=== PATIENT | male | born 2000 | race African-American/Black ===

== ENCOUNTER 2022-11-01 22:17 | Emergency (ER) | payer OTHER ==
[2022-11-01] MEDS ORDERED: FLUORESCEIN SODIUM 1 MG/WRAP ONE (23:32)
[2022-11-01] MEDS ORDERED: TETRACAINE HCL 0.5% 4ML OPTH ONE (23:32)
[2022-11-01] MEDS ORDERED: IBUPROFEN 200 MG TAB PO ONE (23:54)
--- NOTE | 2022-11-01 23:54 | EDPHYS ---
Physician Documentation [facility] Name: Bishnu Valdez Age: 22 yrs Sex: Male : 2000 Arrival Date: 11/01/2022 Time: 22:17 Bed 17 Private MD: ED Physician Marvin Nash HPI: 11/01 23:23 This 22 yrs old Black Male presents to ER via Ambulatory with complaints of Foreign snw Body In Eye. 23:23 The patient sustained fb, to the right eye. Onset: The symptoms/episode began/occurred snw suddenly, today. Duration: the symptoms are continuous. Associated signs and symptoms: Pertinent positives: None. Patient does not utilize any form of vision correction. Severity of symptoms: At their worst the symptoms were moderate. The patient has not experienced similar symptoms in the past. It is unknown whether or not the patient has recently seen a physician. Historical: - Allergies: 23:19 No Known Allergies; cm10 - Home Meds: 23:19 None [Active]; cm10 - PMHx: 23:19 None; cm10 - PSHx: 23:19 None; cm10 - Immunization history:: Adult Immunizations. - Social history:: Smoking status: Patient denies any tobacco usage or history of. ROS: 23:22 Constitutional: Negative for fever, chills, and weight loss, ENT: Negative for injury, snw pain, and discharge, Neck: Negative for injury, pain, and swelling, Cardiovascular: Negative for chest pain, palpitations, and edema, Respiratory: Negative for shortness of breath, cough, wheezing, and pleuritic chest pain, Abdomen/GI: Negative for abdominal pain, nausea, vomiting, diarrhea, and constipation, Back: Negative for injury and pain, : Negative for injury, bleeding, discharge, and swelling, MS/Extremity: Negative for injury and deformity, Skin: Negative for injury, rash, and discoloration, Neuro: Negative for headache, weakness, numbness, tingling, and seizure, Psych: Negative for depression, anxiety, suicide ideation, homicidal ideation, and hallucinations. 23:22 Eyes: Positive for foreign body sensation, of the iris of right eye. Exam: 23:21 Constitutional: This is a well developed, well nourished patient who is awake, alert, snw and in no acute distress. Head/Face: Normocephalic, atraumatic. Eyes: Pupils equal round and reactive to light, extra-ocular motions intact. Lids and lashes normal. Conjunctiva and sclera are non-icteric and not injected. Cornea within normal limits with metal fragment to right distal iris. ENT: Nares patent. No nasal discharge, no septal abnormalities noted. Tympanic membranes are normal and external auditory canals are clear. Oropharynx with no redness, swelling, or masses, exudates, or evidence of obstruction, uvula midline. Mucous membranes moist. 23:21 Neck: Trachea midline, no thyromegaly or masses palpated, and no cervical lymphadenopathy. Supple, full range of motion without nuchal rigidity, or vertebral point tenderness. No Meningismus. Chest/axilla: Normal chest wall appearance and motion. Nontender with no deformity. No lesions are appreciated. Cardiovascular: Regular rate and rhythm with a normal S1 and S2. No gallops, murmurs, or rubs. Normal PMI, no JVD. No pulse deficits. Respiratory: Lungs have equal breath sounds bilaterally, clear to auscultation and percussion. No rales, rhonchi or wheezes noted. No increased work of breathing, no retractions or nasal flaring. Skin: Warm, dry with normal turgor. Normal color with no rashes, no lesions, and no evidence of cellulitis. MS/ Extremity: Pulses equal, no cyanosis. Neurovascular intact. Full, normal range of motion. Neuro: Awake and alert, GCS 15, oriented to person, place, time, and situation. Cranial nerves II-XII grossly intact. Motor strength 5/5 in all extremities. Sensory grossly intact. Cerebellar exam normal. Normal gait. Psych: Awake, alert, with orientation to person, place and time. Behavior, mood, and affect are within normal limits. Vital Signs: 23:17 BP 138 / 97; Pulse 83; Resp 16; Temp 98.4; Pulse Ox 100% ; Weight 90.72 kg; Height 5 cm10 ft. 9 in. ; Pain 5/10; 23:17 Body Mass Index 29.53 (90.72 kg, 175.26 cm) cm10 23:17 Pain Scale: Adult cm10 Visual Acuity: 23:31 Left Eye Visual acuity 20/15, Pupil size 4 mm, Normal, React To Light, Reactive To jb4 Accomodation; Right Eye Visual acuity 20/15, Pupil size 4 mm, Normal, React To Light, Reactive To Accomodation; Both Eyes Visual acuity 20/13; Without Lenses; Procedures: 23:51 Eye Exam: needle used to remove metal from distal iris of right eye. snw MDM: 23:18 Patient medically screened. snw 23:23 Differential diagnosis: Corneal abrasion of right eye. Foreign body in right eye. Data snw reviewed: vital signs, nurses notes. Counseling: I had a detailed discussion with the patient and/or guardian regarding: the historical points, exam findings, and any diagnostic results supporting the discharge/admit diagnosis, the presence of at least one elevated blood pressure reading (>120/80) during this emergency department visit, the need for outpatient follow up, for definitive care, to return to the emergency department if symptoms worsen or persist or if there are any questions or concerns that arise at home. Response to treatment: the patient's symptoms have markedly improved after treatment. Special discussion: I have referred the patient to see his PCP for further evaluation of high blood pressure. Based on the history and exam findings, there is no indication for further emergent testing or inpatient evaluation. I discussed with the patient/guardian the need to see the opthamologist for further evaluation of the symptoms, I discussed with the patient/guardian the need to see the primary care provider for further evaluation of the symptoms. 11/01 23:21 Order name: Visual Acuity; Complete Time: 23:30 snw Administered Medications: 23:30 Drug: Tetracaine Ophthalmic Drops 0.5 % 1 drops {Note: administered by ER provider.} jb4 Route: Ophthalmic; Site: right eye; 23:55 Drug: ERYTHromycin Ophthalmic Ointment 1 application {Note: administered by ER jb4 provider.} Route: Ophthalmic; Site: right eye; 11/02 00:01 Drug: Boostrix Tdap IM 0.5 ml Route: IM; Site: right deltoid; jb4 00:01 Drug: Ibuprofen PO 600 mg Route: PO; jb4 Disposition Summary: 11/01/22 23:53 Discharge Ordered Location: Home snw Condition: Stable snw Diagnosis - Foreign body in cornea, right eye - removed snw Followup: snw - With: Emergency Department - When: As needed - Reason: Worsening of condition Followup: snw - With: Private Physician - When: 2 - 3 days - Reason: Recheck today's complaints, Continuance of care, Re-evaluation by your physician Discharge Instructions: - Discharge Summary Sheet snw - Corneal Abrasion snw - Eye Foreign Body snw - Hypertension, Adult snw - Form - Blood Pressure Record Sheet snw - How to Take Your Blood Pressure snw Forms: - Work release form snw - Medication Reconciliation Form snw - Thank You Letter snw - Antibiotic Education snw - Prescription Opioid Use snw - Patient Portal Instructions snw Prescriptions: - Polytrim 10,000 unit- 1 mg/mL Ophthalmic drops - instill 1 drop by OPHTHALMIC route 4 times per day for 7 days; 10 milliliter; snw Refills: 0, Product Selection Permitted - Tramadol 50 mg Oral Tablet - take 1 tablet by ORAL route every 8 hours as needed; 12 tablet; Refills: 0, snw Product Selection Permitted Signatures: Margie Gillis, BERNABE-C [employer]-Csnw [address] RN RN jb4 Mariposa Duran RN RN cm10
--- NOTE | 2022-11-01 23:54 | ER ---
Nurse's Notes [facility] Name: Bishnu Valdez Age: 22 yrs Sex: Male : 2000 Arrival Date: 11/01/2022 Time: 22:17 Bed 17 Private MD: Diagnosis: Foreign body in cornea, right eye-removed Presentation: 11/01 23:17 Chief complaint: Chief complaint: Patient states: piece of metal in right eye onset cm10 today. Last tetanus: Unknown. Coronavirus screen: Vaccine status: Patient reports receiving the 2nd dose of the covid vaccine. Ebola Screen: No symptoms or risks identified at this time. Initial Sepsis Screen: Does the patient meet any 2 criteria? RR > 20 per min. No. Patient's initial sepsis screen is negative. Does the patient have a suspected source of infection? No. Patient's initial sepsis screen is negative. Risk Assessment: Do you want to hurt yourself or someone else? Patient reports no desire to harm self or others. Onset of symptoms was November 01, 2022. 23:17 Method Of Arrival: Ambulatory cm10 23:17 Acuity: NIDA 4 cm10 Historical: - Allergies: 23:19 No Known Allergies; cm10 - Home Meds: 23:19 None [Active]; cm10 - PMHx: 23:19 None; cm10 - PSHx: 23:19 None; cm10 - Immunization history:: Adult Immunizations. - Social history:: Smoking status: Patient denies any tobacco usage or history of. Screenin:30 [facility] ED Fall Risk Assessment (Adult) History of falling in the last 3 months, jb4 including since admission No falls in past 3 months (0 pts) Confusion or Disorientation No (0 pts) Score/Fall Risk Level 0 - 2 = Low Risk Oriented to surroundings, Maintained a safe environment. Abuse screen: Denies threats or abuse. Nutritional screening: No deficits noted. Tuberculosis screening: No symptoms or risk factors identified. Assessment: 23:30 General: Appears in no apparent distress. comfortable, Behavior is calm, cooperative, jb4 appropriate for age. Pain: Complains of pain in right iris Pain does not radiate. Pain currently is 6 out of 10 on a pain scale. Quality of pain is described as burning. Neuro: Level of Consciousness is awake, alert, obeys commands, Oriented to person, place, time, situation. Cardiovascular: Respiratory: Airway is patent Respiratory effort is even, unlabored, Respiratory pattern is regular, symmetrical. GI: No signs and/or symptoms were reported involving the gastrointestinal system. : No signs and/or symptoms were reported regarding the genitourinary system. EENT: No signs and/or symptoms were reported regarding the EENT system. Derm: Skin is intact, Skin is pink, warm \T\ dry. Musculoskeletal: Circulation, motion, and sensation intact. Range of motion: intact in all extremities. 11/02 00:02 Reassessment: Patient appears in no apparent distress at this time. Patient and/or jb4 family updated on plan of care and expected duration. Pain level reassessed. Patient is alert, oriented x 3, equal unlabored respirations, skin warm/dry/pink. Vital Signs: 11/01 23:17 BP 138 / 97; Pulse 83; Resp 16; Temp 98.4; Pulse Ox 100% ; Weight 90.72 kg; Height 5 cm10 ft. 9 in. ; Pain 5/10; 23:17 Body Mass Index 29.53 (90.72 kg, 175.26 cm) cm10 23:17 Pain Scale: Adult cm10 Visual Acuity: 23:31 Left Eye Visual acuity 20/15, Pupil size 4 mm, Normal, React To Light, Reactive To jb4 Accomodation; Right Eye Visual acuity 20/15, Pupil size 4 mm, Normal, React To Light, Reactive To Accomodation; Both Eyes Visual acuity 20/13; Without Lenses; ED Course: 22:18 Patient arrived in ED. ag3 22:30 Margie Gillis FNP-C [facility]. snw 22:30 Marvin Nash MD is Attending Physician. snw 23:19 Triage completed. cm10 23:19 Arm band placed on Patient placed in an exam room, on a stretcher. cm10 23:[address], DAVID is Primary Nurse. jb4 23:30 Patient has correct armband on for positive identification. Bed in low position. Call jb4 light in reach. Side rails up X 1. 23:30 No provider procedures requiring assistance completed. Patient did not have IV access jb4 during this emergency room visit. 11/02 00:12 Provided Education on: instructed pt to buy proper safety eye wear for work.. jb4 Administered Medications: 11/01 23:30 Drug: Tetracaine Ophthalmic Drops 0.5 % 1 drops {Note: administered by ER provider.} jb4 Route: Ophthalmic; Site: right eye; 23:55 Drug: ERYTHromycin Ophthalmic Ointment 1 application {Note: administered by ER jb4 provider.} Route: Ophthalmic; Site: right eye; 11/02 00:01 Drug: Boostrix Tdap IM 0.5 ml Route: IM; Site: right deltoid; jb4 00:01 Drug: Ibuprofen PO 600 mg Route: PO; jb4 Medication: 00:06 VIS not applicable for this client. Vaccine Information Statement (VIS) provided today. jb4 Questions and/or concerns addressed. VIS edition date: November 06, 2020. Outcome: 11/01 23:53 Discharge ordered by . carmen 11/02 00:05 Discharged to home ambulatory. jb4 Condition: stable Discharge instructions given to patient, Instructed on discharge instructions, follow up and referral plans. medication usage, Demonstrated understanding of instructions, follow-up care, medications, Prescriptions given X 2. 00:12 Patient left the ED. jb4 Signatures: Margie Gillis, PEARL CUTTER-C PEARL CUTTER-Csnw [address], RN RN jb4 Corrine Jones3 Mariposa Duran, RN RN cm10 Corrections: (The following items were deleted from the chart) 00:05 00:05 Discharge instructions given to patient, Instructed on discharge instructions, jb4 follow up and referral plans. medication usage, Demonstrated understanding of instructions, follow-up care, medications, Prescriptions given X 1, jb4 00:06 11/01 23:30 VIS not applicable for this client. jb4 jb4
[2022-11-01] MEDS ORDERED: TDAP (DIPHTH,PERTUSS(ACELL),TET VAC) 0.5 ML VIAL IMVAC ONE (23:55)
[2022-11-01] MEDS ORDERED: ERYTHROMYCIN 1 APPL/1 GM TUBE ONE (23:57)
[2022-11-02 00:20] VITALS: BP 138/97; TEMP 98.4; O2SAT 100
== END 2022-11-02 00:12 | disposition home or self-care (01) ==
LOC: ER 22:17
PROC: 08C8XZZ Extirpation of Matter from Right Cornea, External Approach (ICD-10-PCS; principal; 2022-11-02)
DX: T15.01XA Foreign body in cornea, right eye, initial encounter (principal)
CPT/HCPCS: 96372; 99284